=== PATIENT | female | born 1965 | race African-American/Black ===

== ENCOUNTER 2017-08-17 12:59 | Emergency (ER) | payer MEDICAID, OTHER ==
[~2017-08-17] VITALS: Ht 172.7 cm; Wt 66.0 kg
[2017-08-17 14:49] LABS: CLARITY URINE CLEAR (CLEAR); COLOR URINE YELLOW (YELLOW); KETONES URINE NEGATIVE (NEGATIVE); LEUKOCYTE ESTERASE URINE NEGATIVE (NEGATIVE); NITRITE URINE NEGATIVE (NEGATIVE); OCCULT BLOOD URINE NEGATIVE (NEGATIVE); PROTEIN URINE NEGATIVE (NEGATIVE); SPECIFIC GRAVITY URINE 1.022 (1.005-1.030); UROBILINOGEN URINE 0.2 E.U./dL (0.2-1.0)
[2017-08-17] MEDS ORDERED: MORPHINE SULFATE 10 MG/ML CPJ IM ONE (17:00)
[2017-08-17 17:10] LABS: BASOPHILS % 0.5 % (0.0-2.0); EOSINOPHILS % 2.5 % (0.0-5.0); HEMATOCRIT. 34.9 % (36.0-48.0); HEMOGLOBIN. 11.8 g/dL (12.0-16.0); MEAN CORPUSCULAR HEMOGLOBIN 32.7 pg (28.0-32.0); MEAN CORPUSCULAR VOLUME 96.6 fL (81.0-99.0); MONOCYTES % 7.5 % (2.0-8.0); NEUTROPHILS % 45.5 % (40.0-76.0); RED BLOOD CELL COUNT 3.61 mill/uL (4.2-5.4); RED CELL DISTRIBUTION WIDTH 13.4 % (11.6-14.6)
[2017-08-17 17:17] LABS: CHLORIDE 111 mEq/L (98-107)
[2017-08-17 17:25] LABS: CARBON DIOXIDE 25 mEq/L (21-32)
[2017-08-17 19:20] VITALS: BP 126/90
== END 2017-08-17 20:15 | disposition home or self-care (01) ==
LOC: ER 14:05
DX: M54.5 Low back pain (principal); Z85.528 Personal history of other malignant neoplasm of kidney; Z90.5 Acquired absence of kidney; Z90.710 Acquired absence of both cervix and uterus
CPT/HCPCS: 36415; 71045; 72100; 76770; 80053; 81003; 85025; 96372; 99285; J2270

== ENCOUNTER 2024-08-08 12:51 | Emergency (ER) | payer MEDICAID, OTHER ==
[~2024-08-08] VITALS: Ht 172.7 cm; Wt 52.0 kg
[2024-08-08 12:55] VITALS: O2SAT 99
[2024-08-08 13:00] VITALS: BP 147/84; PULSE 98; RESP 18; TEMP 98.3; O2SAT 100
[2024-08-08 16:21] LABS: HEMATOCRIT. 35.8 % (36.0-48.0); HEMOGLOBIN. 12.1 g/dL (12.0-16.0); MEAN CORPUSCULAR HEMOGLOBIN 33.7 pg (28.0-32.0); MEAN CORPUSCULAR HGB CONC 33.9 g/dL (31.0-37.0); MEAN CORPUSCULAR VOLUME 99.6 fL (81.0-99.0); MEAN PLATELET VOLUME 7.1 fl (7.4-10.4); PLATELET 226 x1000/uL (130-400); RED BLOOD CELL COUNT 3.59 mill/uL (4.2-5.4); WHITE BLOOD COUNT 4.1 x1000/uL (4.5-11.0)
[2024-08-08 16:26] LABS: DIFFERENTIAL COMMENT 1; TROPONIN I HIGH SENSITIVITY 4 ng/L (3.0-34)
[2024-08-08 23:54] LABS: PLATELET ESTIMATE NORMAL
== END 2024-08-08 17:03 | disposition home or self-care (01) ==
LOC: ER 12:51
DX: R06.02 Shortness of breath (principal); R07.89 Other chest pain; F10.90 Alcohol use, unspecified, uncomplicated; Z90.710 Acquired absence of both cervix and uterus; Y90.9 Presence of alcohol in blood, level not specified
CPT/HCPCS: 36415; 71045; 84484; 85025; 93005; 99285